=== PATIENT | female | born 1955 | race American Indian/Alaskan Native ===

== ENCOUNTER 2018-12-12 09:08 | Outpatient (CLI) | payer MEDICARE ==
--- NOTE | 2018-12-12 14:01 | MRI ---
MRI LUMBAR SPINE NONCONTRAST: 12/12/2018 HISTORY: A 63-year-old female with M96.1, post laminectomy syndrome. Chronic low back pain and left lumbar ra diculopathy. COMPARISON: None. FINDINGS: For the purposes of this report, it will be assumed that there are 5 lumbar-type vertebrae. The vert ebral body heights are maintained. Bone marrow signal is normal. The conus medullaris terminates at the upper L1. The findings by individual levels are as follows: T12-L1: Normal disk. Mild bilateral degenerative facet changes. No central or neural foraminal amparo nosis. L1-L2: Essentially normal. L2-L3: Essentially normal. L3-L4: Mild to moderate disk space narrowing. Left hemilaminotomy defect. No central stenosis. Mi ld diffuse disk bulge. There is moderate left neural foraminal stenosis and indentation on the exiti ng left L3 nerve root by broad-based structure that is contiguous with the left lateral and far later al aspect of the intervertebral disk. Mild right neural foraminal stenosis. Mild diffuse disk bulge . L4-L5: Mild to moderate disk space narrowing. Diffuse disk bulge. Central and right paracentral fo liv small disk protrusion with annular fissure indents the ventral aspect of the thecal sac and abuts the bilateral L5 nerve roots. Mild central spinal canal stenosis and lateral recess stenosis bilate rally. Moderate right degenerative facet changes. Mild to moderate left degenerative facet changes. Mild to moderate right neural foraminal stenosis. Moderate left neural foraminal stenosis. Left h emilaminotomy defect. L5-S1: Severe disk space narrowing. Degenerative retrolisthesis of L5 on S1, plus broad-based disk- osteophytic bar complex, encroach upon the anterior aspect of the spinal canal, causing lateral reces s stenosis bilaterally. No high-grade central spinal canal stenosis. No right neural foraminal sten osis. Mild left neural foraminal stenosis. Mild bilateral degenerative facet changes, left greater than right. IMPRESSION: 1. Status post left hemilaminectomies at L3-L4 and L4-L5. 2. Indentation and displacement of the exiting left L3 nerve root in the left neural foramen by mate rial contiguous with the intervertebral disk. This has the appearance of broad-based left lateral an d far lateral disk herniation. However, it is possible that some or all this could represent post mcmahon rgical scar tissue. Distinguishing the two entities would require a contrast enhanced MRI. 3. Lateral recess stenosis bilaterally at L4-L5. 4. No high-grade central spinal canal stenosis at any level. 5. Mild and moderate degenerative disk disease and facet osteoarthrosis at various levels (lumbar sp ondylosis). SELENE Davis POS: [facility]
--- NOTE | 2018-12-12 14:04 | MRI ---
MRI CERVICAL SPINE NONCONTRAST: DATE: 12-12-18 HISTORY: 63-year-old female with chronic cervicalgia and bilateral cervical radiculopathy. COMPARISON: None. FINDINGS: Spinal canal is developmentally small in caliber due to congenitally short pedicles. This is exacerba jennifer by cervical spondylosis at certain levels, especially at C5-6. Vertebral body heights are maintai karen. No major bone marrow signal abnormality. Mild to moderate facet DJD on the right and moderate to severe facet DJD on the left, at C7-T1. Disc space narrowing is mild at C4-5, moderate at C5-6, and mild at C6-7. C1-2: No central stenosis. C2-3: No central or right neural foraminal stenosis. Mild left neural foraminal stenosis due to mild left degenerative facet hypertrophy. C3-4: Mild indentation of the ventral aspect of the thecal sac by a broad based minimal disc/osteophy tic bar complex and minimal grade I anterolisthesis of C3 on C4, resulting in mild to moderate centra l spinal canal stenosis. Small bilateral uncinate process osteophytes. Mild to moderate bilateral madeline ral foraminal stenosis. C4-5: Shallow, broad based disc/osteophytic bar complex which is contiguous asymmetrically with moder ately large left uncinate process osteophytes causing severe left neural foraminal stenosis. Moderate central spinal canal stenosis, especially in the left side of the spinal canal. Small right uncinate process osteophytes and moderate right neural foraminal stenosis. C5-6: Prominent broad based disc/osteophytic bar complex protrudes into the anterior aspect of the sp inal canal, exacerbating the developmentally small caliber spinal canal, and causes moderate to sever e central spinal canal stenosis. The spinal cord is flattened in the anteroposterior dimension. There is mild intermedullary T2 hyperintensity centered at the posterior/central portion of the spinal cor d, which probably represents a tiny focus of myelomalacia. Mild cord atrophy. Moderate sized bilatera l uncinate process osteophytes. Severe bilateral neural foraminal stenosis, left worse than right. C6-7: Broad based disc/osteophytic bar complex asymmetrically and focally more prominent at the right paracentral aspect of the spinal canal, exacerbating the developmentally small caliber spinal canal, causing moderate central spinal canal stenosis. There is moderate to severe bilateral neural foramin al stenosis. C7-T1: No central stenosis. Moderate bilateral neural foraminal stenosis. IMPRESSION: 1) Cervical spondylosis consisting of a few levels of moderate degenerative disc disease, exacerbat ing a developmentally small caliber spinal canal. 2) High grade left sided facet osteoarthrosis at C7-T1. 3) High grade central spinal canal stenosis at several levels, worst at C5-6. 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 5) Several levels of high grade bilateral neural foraminal stenosis. The worst are severe left neur al foraminal stenosis at C4-5 and C5-6. POS: [facility]
== END 2018-12-12 09:09 | disposition home or self-care (01) ==
LOC: SCSMRI 09:08
PROVIDERS: ATTEND Family Medicine
DX: M96.1 Postlaminectomy syndrome, not elsewhere classified (principal); M50.30 Other cervical disc degeneration, unspecified cervical region; M47.812 Spondylosis without myelopathy or radiculopathy, cervical region; M47.813 Spondylosis without myelopathy or radiculopathy, cervicothoracic region; M48.02 Spinal stenosis, cervical region; G95.89 Other specified diseases of spinal cord; M51.36 Other intervertebral disc degeneration, lumbar region; M48.061 Spinal stenosis, lumbar region without neurogenic claudication; M47.816 Spondylosis without myelopathy or radiculopathy, lumbar region; Z98.890 Other specified postprocedural states
CPT/HCPCS: 72141; 72148

== ENCOUNTER 2019-02-01 10:16 | Outpatient (CLI) | payer MEDICARE ==
--- NOTE | 2019-02-01 10:32 | RAD ---
Exam: Cervical spine 3 views HISTORY: one year of neck pain. FINDINGS: No prevertebral soft tissue swelling. Predental space is normal. In the neutral position, there is straightening of normal cervical lordosis. Moderate loss of disc sp juan manuel height and osteophyte formation at C4-C5, C5-C6 and C6-C7. 2 mm of retrolisthesis of C5 upon C6 in the neutral position; 2.3 mm of retrolisthesis upon extension; 1.1 mm of retrolisthesis upon flexi on. Cervical spine vertebral body height is maintained. No fracture. Cervicothoracic junction is unremark able IMPRESSION: 1. Moderate degenerative disc disease involving the cervical spine at C4-C5, C5-C6, C6-C7. 2. Grade 1 retrolisthesis of C5 upon C6 without significant translational motion.
== END 2019-02-01 10:17 | disposition home or self-care (01) ==
LOC: TBSIIMAG 10:16
PROVIDERS: ATTEND Neurological Surgery
DX: M50.11 Cervical disc disorder with radiculopathy, high cervical region (principal); M54.5 Low back pain; M43.12 Spondylolisthesis, cervical region
CPT/HCPCS: 72040

== ENCOUNTER 2021-10-05 10:33 | Outpatient (CLI) | payer MEDICARE, OTHER | END 2021-10-05 10:34 | disposition home or self-care (01) | LOC: SCSMRI 10:33 | PROVIDERS: ATTEND Family Medicine | DX: M51.17 Intervertebral disc disorders with radiculopathy, lumbosacral region (principal); M51.16 Intervertebral disc disorders with radiculopathy, lumbar region; M25.78 Osteophyte, vertebrae; M48.061 Spinal stenosis, lumbar region without neurogenic claudication | CPT/HCPCS: 72148 ==

== ENCOUNTER 2024-09-20 14:01 | Outpatient (CLI) | payer MEDICARE | END 2024-09-20 14:02 | disposition home or self-care (01) | LOC: MRI 14:01 | PROVIDERS: ATTEND Student in an Organized Health Care Education/Training Program | DX: M48.02 Spinal stenosis, cervical region (principal); M47.812 Spondylosis without myelopathy or radiculopathy, cervical region; G95.89 Other specified diseases of spinal cord; Z98.890 Other specified postprocedural states | CPT/HCPCS: 72141 ==